=== PATIENT | female | born 1935 | race Caucasian/White ===

== ENCOUNTER 2017-08-31 09:03 | Day surgery (SDC) | payer OTHER, SELFPAY ==
[~2017-08-31] VITALS: Ht 160 cm; Wt 68.0 kg
[~2017-08-31 09:03] MED LIST: ALLO300; BONINE25 MG; CLAR500 PO; Citalopram HBr10 MG; DIAZ5; ESCI10; FENT50TP; GABA100; GEMF600; HYDACE10B; HYDACE5; HYDACE7.5; HYDMOR2 PO; HYDR1TAB94; IBUP800; IRBHYD300; LANS30EC; LEVSOD100; LEVSOD175; LEVSOD75; LISHYD2012; LOSARTAN-HCTZ1 EACH; METCAR500 PO; METPRE4DP PO; Mirapex0.25 MG; PANT40; POTCHL10ER; PRED10 PO; PRED20 PO; QUIN325; RESTASIS MULTI5.5 ML; RESTORIL; SYNTHROID; TRAM50 PO; VOLTAREN
== END 2017-08-31 11:00 | disposition home or self-care (01) ==
LOC: ORSCSDS 09:03
PROVIDERS: Surgery
PROC: 0DBM8ZX Excision of Descending Colon, Via Natural or Artificial Opening Endoscopic, Diagnostic (ICD-10-PCS; principal; 2017-08-31 10:30)
DX: R19.5 Other fecal abnormalities (principal); D12.4 Benign neoplasm of descending colon; K57.30 Diverticulosis of large intestine without perforation or abscess without bleeding; E78.5 Hyperlipidemia, unspecified; R19.4 Change in bowel habit; I48.91 Unspecified atrial fibrillation; R19.7 Diarrhea, unspecified; I10 Essential (primary) hypertension; I25.10 Atherosclerotic heart disease of native coronary artery without angina pectoris; Z79.82 Long term (current) use of aspirin; Z79.899 Other long term (current) drug therapy; E03.9 Hypothyroidism, unspecified
CPT/HCPCS: 88305; J2405; J7120

== ENCOUNTER → 2017-11-11 | Outpatient (CLI) | payer OTHER, SELFPAY | LOC: LAB 14:27 → LAB FUT 11-06 12:45 | DX: R19.7 Diarrhea, unspecified (principal) | CPT/HCPCS: 87015; 87045; 87046; 87177; 87205; 87209; 87493; 87899 ==

== ENCOUNTER → 2018-01-15 | Outpatient (CLI) | payer OTHER, SELFPAY ==
[2018-01-15 09:38] LABS: BASOPHILS PERCENT AUTO 0 % (0-2); EOSINOPHILS PERCENT AUTO 0 % (0-6); Hematocrit 40.8 % (33.0-51.0); Hemoglobin 14.7 g/dL (11.5-16.0); IMMATURE GRAN ABSOLUTE AUTO 0.01 K/mm3 (0.00-0.10); IMMATURE GRAN PERCENT AUTO 0 % (0-1); LYMPHOCYTES ABSOLUTE AUTO 1.22 K/mm3 (0.84-5.20); LYMPHOCYTES PERCENT AUTO 32 % (21-46); MONOCYTES ABSOLUTE AUTO 0.21 K/mm3 (0.16-1.47); MONOCYTES PERCENT AUTO 5 % (4-13); Mean Corpuscular HGB 31.8 pg (26.0-34.0); Mean Corpuscular Volume 88 fL (80-100); Mean Platelet Volume 9.2 fL (9.1-12.4); NEUTROPHILS ABSOLUTE AUTO 2.42 K/mm3 (1.96-9.15); NEUTROPHILS PERCENT AUTO 63 % (41-73); Platelet Count 170 K/mm3 (150-400); RDW Coefficient Variation 11.9 % (11.7-14.2); RDW Standard Deviation 38.2 fL (35.1-46.3); Red Blood Cell Count 4.62 M/mm3 (3.80-5.20); White Blood Cell Count 3.86 K/mm3 (4.00-11.30)
[2018-01-15 09:57] LABS: Alanine Aminotransfer (ALT/SGP 41 U/L (12-78); Albumin, Blood 3.8 g/dL (3.4-5.0); Albumin/Globulin Ratio 1.1 (0.8-1.8); Alk Phos 80 U/L (40-126); Anion Gap 9 mmol/L (6-16); Aspartate Aminotrans (AST/SGOT 27 U/L (12-37); Bilirubin, Total 0.8 mg/dL (0.1-1.0); Blood Urea Nitrogen 18 mg/dL (8-24); Bun/Creatinine Ratio 21.2 (12.0-20.0); CO2, Blood 28 mmol/L (21-32); Calcium, Blood 9.1 mg/dL (8.5-10.1); Chloride, Blood 101 mmol/L (98-108); Creatinine, Blood 0.85 mg/dL (0.40-1.00); Globulin, Blood 3.6 g/dL (2.2-4.0); Glomerular Filtration Rate >60 (60-); Glucose, Blood 102 mg/dL (70-99); Potassium, Blood 4.1 mmol/L (3.5-5.5); Sodium, Blood 138 mmol/L (136-145); Total Protein, Blood 7.4 g/dL (6.4-8.2)
== END | disposition home or self-care (01) ==
LOC: LAB SHORT 09:33 → LAB EV 09:33
PROVIDERS: Physician Assistant
DX: R06.02 Shortness of breath (principal)
CPT/HCPCS: 80053; 85025

== ENCOUNTER 2019-08-16 15:18 | Day surgery (SDC) | payer OTHER ==
[~2019-08-16] VITALS: Ht 160 cm; Wt 70.5 kg
[~2019-08-16 15:18] MED LIST changes: -ALLO300; +ALLO300 PO; -FENT50TP; +FENT50TP TOP; -GABA100; +GABA100 PO; -HYDR1TAB94; +HYDR1TAB94 PO
[2019-08-16] MEDS ORDERED: ATOR80 PO (16:43)
[2019-08-16] MEDS ORDERED: BUPR150ER PO (16:44)
--- NOTE | 2019-08-16 17:04 | NUR ---
08/16/19 1704 Della Russo ([facility] BEDSIDE INJECTION CONDUCTED BY DR. TOPETE 1648: TIME OUT & SITE CHECK CONDUCTED 1649: PROCEDURE START 1654: PROCEDURE END 2MG VERSED IVP GIVEN PER DR ORDERS, DR. TOPETE INJECTED 10ML OF LIDOCAINE 1% WITH EPI 1:100,000. 10MG LIDOCAINE PER ML. PT TOLERATED WELL WITH REMINDERS TO TAKE DEEP BREATHS, PULSE OX ON PATIENT THROUGHOUT PATIENT. NO ISSUES OR COMPLICATIONS.
== END 2019-08-16 17:52 | disposition home or self-care (01) ==
LOC: ORSCSDS 15:18
PROVIDERS: Orthopaedic Surgery
PROC: 01N54ZZ Release Median Nerve, Percutaneous Endoscopic Approach (ICD-10-PCS; principal; 2019-08-16 16:30)
DX: G56.01 Carpal tunnel syndrome, right upper limb (principal); Z79.899 Other long term (current) drug therapy; I10 Essential (primary) hypertension; I25.10 Atherosclerotic heart disease of native coronary artery without angina pectoris
CPT/HCPCS: J0690; J2250; J2704; J3010; J7120

== ENCOUNTER → 2019-09-29 | Outpatient (CLI) | payer OTHER ==
[~2019-09-29] MED LIST changes: +ATOR80 PO; +BUPR150ER PO
== END ==
LOC: LAB SHORT 09:39 → LAB EV 09:39
DX: H00.033 Abscess of eyelid right eye, unspecified eyelid (principal)
CPT/HCPCS: 87070; 87205

== ENCOUNTER → 2020-06-30 | Outpatient (CLI) | payer OTHER | LOC: LAB EV 14:15 → LAB SHORT 14:15 | DX: N39.41 Urge incontinence (principal) | CPT/HCPCS: 87086 ==

== ENCOUNTER 2021-04-14 11:44 | Day surgery (SDC) | payer OTHER ==
[~2021-04-14] VITALS: Ht 157.5 cm; Wt 71.5 kg
[~2021-04-14 11:44] MED LIST changes: +ATOR40TA PO; +Aspir 8181 MG PO; +ESCI10 PO; +FAMO40 PO; +FENTANYL1 EA12 TOP; +LEVOTHYROXINE150 MC3 PO; +LORA10ER PO; +LOSA50 PO; +MAGNESIUM OXID500 MG PO; +MECL25 PO; +MIRAPEX0.25 M2 PO; +MULVITA PO; +Norco 10-325 T1 EACH PO; +OXYB5 PO; +SPIR25 PO; +Selenomax200 MCG PO; +TORSE20 PO; +UNISOM PO; +Vitamin B-Comp1 EACH PO
== END 2021-04-14 13:30 | disposition home or self-care (01) ==
LOC: ORSCSDS 11:44
PROVIDERS: Internal Medicine Gastroenterology
PROC: 0DB68ZX Excision of Stomach, Via Natural or Artificial Opening Endoscopic, Diagnostic (ICD-10-PCS; principal; 2021-04-14 13:15)
PROC: 0DB58ZX Excision of Esophagus, Via Natural or Artificial Opening Endoscopic, Diagnostic (ICD-10-PCS; principal; 2021-04-14 13:15)
PROC: 0D758ZZ Dilation of Esophagus, Via Natural or Artificial Opening Endoscopic (ICD-10-PCS; principal; 2021-04-14 13:15)
DX: R13.10 Dysphagia, unspecified (principal); K44.9 Diaphragmatic hernia without obstruction or gangrene; I25.10 Atherosclerotic heart disease of native coronary artery without angina pectoris; I85.00 Esophageal varices without bleeding; F32.9 Major depressive disorder, single episode, unspecified; I10 Essential (primary) hypertension; Z79.82 Long term (current) use of aspirin; Z79.899 Other long term (current) drug therapy
CPT/HCPCS: 88305; 88342; J2704; J7120

== ENCOUNTER → 2021-05-06 | Outpatient (CLI) | payer OTHER | END | disposition home or self-care (01) | LOC: LAB SHORT 13:50 | DX: R32 Unspecified urinary incontinence (principal) | CPT/HCPCS: 87086 ==

== ENCOUNTER → 2021-11-11 | Outpatient (CLI) | payer OTHER ==
[2021-11-12 09:23] LABS: Candida species (DNA Probe) Negative (NEGATIVE); G. vaginalis (DNA Probe) Negative (NEGATIVE); T. vaginalis (DNA Probe) Negative (NEGATIVE)
== END | disposition home or self-care (01) ==
LOC: LAB 13:53 → LAB SHORT 13:53
PROVIDERS: Family Medicine
DX: Z01.419 Encounter for gynecological examination (general) (routine) without abnormal findings (principal); L29.3 Anogenital pruritus, unspecified
CPT/HCPCS: 87480; 87510; 87660; 88142

== ENCOUNTER 2022-06-21 23:16 | Emergency (ER) | payer OTHER ==
[~2022-06-21] VITALS: Ht 157.5 cm; Wt 68.0 kg
== END 2022-06-22 05:28 | disposition home or self-care (01) ==
LOC: ER 23:16
DX: S12.112A Nondisplaced Type II dens fracture, initial encounter for closed fracture (principal); S01.81XA Laceration without foreign body of other part of head, initial encounter; W01.0XXA Fall on same level from slipping, tripping and stumbling without subsequent striking against object, initial encounter; Z79.899 Other long term (current) drug therapy; Z79.82 Long term (current) use of aspirin; Z88.5 Allergy status to narcotic agent; Z88.8 Allergy status to other drugs, medicaments and biological substances; Z88.6 Allergy status to analgesic agent; Z91.040 Latex allergy status
CPT/HCPCS: 70450; 72125; 73120; 82947

== ENCOUNTER 2023-05-03 09:13 | Emergency (ER) | payer OTHER ==
[~2023-05-03] VITALS: Ht 157.5 cm; Wt 61.2 kg
[2023-05-03 09:41] VITALS: BP 130/69
== END 2023-05-03 11:26 | disposition home or self-care (01) ==
LOC: ER 09:13
DX: R07.81 Pleurodynia (principal); W18.11XA Fall from or off toilet without subsequent striking against object, initial encounter; Z88.8 Allergy status to other drugs, medicaments and biological substances; Z88.6 Allergy status to analgesic agent; Z88.5 Allergy status to narcotic agent; Z91.040 Latex allergy status; Z79.899 Other long term (current) drug therapy; Z79.82 Long term (current) use of aspirin; Z79.891 Long term (current) use of opiate analgesic; K21.9 Gastro-esophageal reflux disease without esophagitis
CPT/HCPCS: 71101; 99283-25; A9270

== ENCOUNTER 2023-06-13 17:25 | Emergency (ER) | payer OTHER ==
[~2023-06-13] VITALS: Ht 157.5 cm; Wt 61.2 kg
[2023-06-13] MEDS ORDERED: HYDMOR2 PO (22:54)
[2023-06-13 23:32] VITALS: BP 137/65
== END 2023-06-13 23:51 | disposition home or self-care (01) ==
LOC: ER 17:25
DX: R13.10 Dysphagia, unspecified (principal)
CPT/HCPCS: 99283

== ENCOUNTER 2023-08-24 15:25 | Emergency (ER) | payer OTHER ==
[~2023-08-24] VITALS: Ht 162.6 cm; Wt 66.7 kg
[2023-08-24] MEDS ORDERED: BACLOFEN5 M1 PO (15:42)
[2023-08-24] MEDS ORDERED: LOPE2C PO (15:43)
[2023-08-24] MEDS ORDERED: HYDROCODONE-AC1 EAC7 PO (15:45)
[2023-08-24] MEDS ORDERED: PANTOPRAZOLE SO40 M2 PO (15:45)
[2023-08-24] MEDS ORDERED: SENNA LAXATIVE8.6 MG PO (15:46)
[2023-08-24 16:03] LABS: BASOPHILS PERCENT AUTO 0 % (0-2); EOSINOPHILS PERCENT AUTO 0 % (0-6); Hematocrit 41.9 % (33.0-51.0); Hemoglobin 14.7 g/dL (11.5-16.0); IMMATURE GRAN ABSOLUTE AUTO 0.01 K/mm3 (0.00-0.10); IMMATURE GRAN PERCENT AUTO 0 % (0-1); LYMPHOCYTES ABSOLUTE AUTO 1.66 K/mm3 (0.84-5.20); LYMPHOCYTES PERCENT AUTO 32 % (21-46); MONOCYTES ABSOLUTE AUTO 0.29 K/mm3 (0.16-1.47); MONOCYTES PERCENT AUTO 6 % (4-13); Mean Corpuscular HGB Conc 35.1 g/dL (31.5-36.5); Mean Corpuscular Volume 94 fL (80-100); Mean Platelet Volume 9.5 fL (9.1-12.4); NEUTROPHILS ABSOLUTE AUTO 3.28 K/mm3 (1.96-9.15); NEUTROPHILS PERCENT AUTO 63 % (41-73); Platelet Count 151 K/mm3 (150-400); RDW Coefficient Variation 11.9 % (11.7-14.2); RDW Standard Deviation 41.1 fL (35.1-46.3); Red Blood Cell Count 4.45 M/mm3 (3.80-5.20); White Blood Cell Count 5.24 K/mm3 (4.00-11.30)
[2023-08-24 16:10] LABS: Albumin, Blood 3.9 g/dL (3.4-5.0); Albumin/Globulin Ratio 1.1 (0.8-1.8); Bilirubin, Total 0.5 mg/dL (0.1-1.0); Bun/Creatinine Ratio 25.9 (12.0-20.0); Calcium, Blood 9.3 mg/dL (8.5-10.1); Creatinine, Blood 0.77 mg/dL (0.40-1.00); Globulin, Blood 3.5 g/dL (2.2-4.0); Potassium, Blood 3.8 mmol/L (3.5-5.5); Total Protein, Blood 7.4 g/dL (6.4-8.2)
[2023-08-24 18:00] VITALS: BP 164/76
== END 2023-08-24 18:18 | disposition home or self-care (01) ==
LOC: ER 15:25
PROVIDERS: Emergency Medicine
DX: S16.1XXA Strain of muscle, fascia and tendon at neck level, initial encounter (principal); S00.03XA Contusion of scalp, initial encounter; S00.31XA Abrasion of nose, initial encounter; S00.81XA Abrasion of other part of head, initial encounter; S12.110D Anterior displaced Type II dens fracture, subsequent encounter for fracture with routine healing; W01.10XA Fall on same level from slipping, tripping and stumbling with subsequent striking against unspecified object, initial encounter; Z88.8 Allergy status to other drugs, medicaments and biological substances; Z88.6 Allergy status to analgesic agent; Z88.5 Allergy status to narcotic agent; Z91.040 Latex allergy status; Z79.899 Other long term (current) drug therapy; Z79.82 Long term (current) use of aspirin; K21.9 Gastro-esophageal reflux disease without esophagitis
CPT/HCPCS: 70450; 72125; 80053; 85025; 93005; 93010; 96374; 99284-25; J1170

== ENCOUNTER 2024-04-13 16:33 | Emergency (ER) | payer OTHER ==
[~2024-04-13] VITALS: Ht 157.5 cm; Wt 65.3 kg
[~2024-04-13 16:33] MED LIST changes: +BACLOFEN5 M1 PO; +HYDROCODONE-AC1 EAC7 PO; +LOPE2C PO; +PANTOPRAZOLE SO40 M2 PO; +SENNA LAXATIVE8.6 MG PO
[2024-04-13 16:55] LABS: BASOPHILS ABSOLUTE AUTO 0.01 K/mm3 (0.00-0.23); BASOPHILS PERCENT AUTO 0 % (0-2); EOSINOPHILS PERCENT AUTO 0 % (0-6); Hemoglobin 15.1 g/dL (11.5-16.0); IMMATURE GRAN PERCENT AUTO 0 % (0-1); LYMPHOCYTES ABSOLUTE AUTO 0.96 K/mm3 (0.84-5.20); LYMPHOCYTES PERCENT AUTO 24 % (21-46); MONOCYTES ABSOLUTE AUTO 0.56 K/mm3 (0.16-1.47); MONOCYTES PERCENT AUTO 14 % (4-13); Mean Corpuscular HGB Conc 35.1 g/dL (31.5-36.5); Mean Corpuscular Volume 91 fL (80-100); Mean Platelet Volume 9.6 fL (9.1-12.4); NEUTROPHILS ABSOLUTE AUTO 2.45 K/mm3 (1.96-9.15); NEUTROPHILS PERCENT AUTO 62 % (41-73); Platelet Count 112 K/mm3 (150-400); RDW Coefficient Variation 11.9 % (11.7-14.2); RDW Standard Deviation 39.8 fL (35.1-46.3); Red Blood Cell Count 4.72 M/mm3 (3.80-5.20); White Blood Cell Count 3.98 K/mm3 (4.00-11.30)
[2024-04-13 17:34] LABS: Influenza A, PCR NEGATIVE (NEGATIVE); Influenza B, PCR NEGATIVE (NEGATIVE); Resp Syncytial Virus, PCR NEGATIVE (NEGATIVE)
[2024-04-13 17:46] LABS: Albumin, Blood 3.8 g/dL (3.4-5.0); Albumin/Globulin Ratio 1.1 (0.8-1.8); Bilirubin, Total 0.6 mg/dL (0.1-1.0); Bun/Creatinine Ratio 24.2 (12.0-20.0); Calcium, Blood 8.8 mg/dL (8.5-10.1); Creatinine, Blood 0.74 mg/dL (0.40-1.00); Globulin, Blood 3.5 g/dL (2.2-4.0); Potassium, Blood 3.9 mmol/L (3.5-5.5); Total Protein, Blood 7.3 g/dL (6.4-8.2)
[2024-04-13 18:30] VITALS: BP 148/112
[2024-04-13 20:01] LABS: SARS-Cov-2 (COVID-19) PCR, MMC POSITIVE (NEGATIVE)
[2024-04-13] MEDS ORDERED: PAXLOVID 300-11 EAC1 PO (21:06)
== END 2024-04-13 21:30 ==
LOC: ER 16:33
PROVIDERS: Emergency Medicine
DX: U07.1 COVID-19 (principal); K21.9 Gastro-esophageal reflux disease without esophagitis; Z88.6 Allergy status to analgesic agent; Z88.5 Allergy status to narcotic agent; Z91.040 Latex allergy status; Z88.8 Allergy status to other drugs, medicaments and biological substances; Z79.82 Long term (current) use of aspirin; Z79.890 Hormone replacement therapy; Z79.899 Other long term (current) drug therapy
CPT/HCPCS: 0241U; 71046; 80053; 85025; 93005; 93010; 99285-25

== ENCOUNTER 2024-04-15 14:47 | Emergency (ER) | payer OTHER ==
[~2024-04-15] VITALS: Ht 157.5 cm; Wt 65.3 kg
[~2024-04-15 14:47] MED LIST changes: +PAXLOVID 300-11 EAC1 PO
[2024-04-15] MEDS ORDERED: EUTHYROX137 MC1 PO (18:25)
[2024-04-15] MEDS ORDERED: SPIRONOLACTONE25 MG PO (18:27)
[2024-04-15] MEDS ORDERED: PRAMIPEXOLE D0.25 M1 PO (18:28)
[2024-04-15] MEDS ORDERED: ESCITALOPRAM OXA5 MG PO (18:28)
[2024-04-15] MEDS ORDERED: METOPROLOL SUCC25 MG PO (18:30)
[2024-04-15] MEDS ORDERED: GuaiFENesin 600 MG TabCR PO ONE (18:40)
[2024-04-15] MEDS ORDERED: Albuterol 2.5 MG/3 ML VIAL INH ONE (18:40)
[2024-04-15 19:06] LABS: BASOPHILS ABSOLUTE AUTO 0.01 K/mm3 (0.00-0.23); BASOPHILS PERCENT AUTO 0 % (0-2); EOSINOPHILS PERCENT AUTO 0 % (0-6); Hematocrit 43.1 % (33.0-51.0); Hemoglobin 15.3 g/dL (11.5-16.0); IMMATURE GRAN PERCENT AUTO 0 % (0-1); LYMPHOCYTES ABSOLUTE AUTO 0.97 K/mm3 (0.84-5.20); LYMPHOCYTES PERCENT AUTO 33 % (21-46); MONOCYTES ABSOLUTE AUTO 0.29 K/mm3 (0.16-1.47); MONOCYTES PERCENT AUTO 10 % (4-13); Mean Corpuscular HGB 32.3 pg (26.0-34.0); Mean Corpuscular HGB Conc 35.5 g/dL (31.5-36.5); Mean Corpuscular Volume 91 fL (80-100); Mean Platelet Volume 9.6 fL (9.1-12.4); NEUTROPHILS ABSOLUTE AUTO 1.67 K/mm3 (1.96-9.15); NEUTROPHILS PERCENT AUTO 57 % (41-73); Platelet Count 127 K/mm3 (150-400); RDW Coefficient Variation 11.7 % (11.7-14.2); RDW Standard Deviation 39.1 fL (35.1-46.3); Red Blood Cell Count 4.73 M/mm3 (3.80-5.20); White Blood Cell Count 2.94 K/mm3 (4.00-11.30)
[2024-04-15 19:29] LABS: Albumin, Blood 3.8 g/dL (3.4-5.0); Albumin/Globulin Ratio 1.1 (0.8-1.8); Bilirubin, Total 0.6 mg/dL (0.1-1.0); Bun/Creatinine Ratio 18.8 (12.0-20.0); Calcium, Blood 8.7 mg/dL (8.5-10.1); Creatinine, Blood 0.64 mg/dL (0.40-1.00); Globulin, Blood 3.4 g/dL (2.2-4.0); Total Protein, Blood 7.2 g/dL (6.4-8.2)
[2024-04-15] MEDS ORDERED: RX Prepack Albuterol 1 PREPACK/6.7 GM INH UD ONE (20:25)
[2024-04-15] MEDS ORDERED: Benzonatate 100 MG Cap PO ONE (20:25)
[2024-04-15] MEDS ORDERED: ALBU90OI INH (20:29)
[2024-04-15] MEDS ORDERED: GUAI600T33 PO (20:29)
[2024-04-15] MEDS ORDERED: BENZ100A PO (20:29)
[2024-04-15 20:58] VITALS: BP 147/72
== END 2024-04-15 21:09 | disposition home or self-care (01) ==
LOC: ER 14:47
PROVIDERS: Student in an Organized Health Care Education/Training Program
DX: U07.1 COVID-19 (principal); K21.9 Gastro-esophageal reflux disease without esophagitis; I25.10 Atherosclerotic heart disease of native coronary artery without angina pectoris; Z95.5 Presence of coronary angioplasty implant and graft; Z88.8 Allergy status to other drugs, medicaments and biological substances; Z88.5 Allergy status to narcotic agent; Z91.040 Latex allergy status; Z79.82 Long term (current) use of aspirin; Z79.899 Other long term (current) drug therapy; Z79.890 Hormone replacement therapy
CPT/HCPCS: 71046; 80053; 85025; 93005; 93010; 94640; 94664; 99284-25; A9270

== ENCOUNTER 2024-05-26 18:05 | Emergency (ER) | payer OTHER ==
[~2024-05-26] VITALS: Ht 157.5 cm; Wt 65.3 kg
[~2024-05-26 18:05] MED LIST changes: +ALBU90OI INH; +BENZ100A PO; +ESCITALOPRAM OXA5 MG PO; +EUTHYROX137 MC1 PO; +GUAI600T33 PO; +METOPROLOL SUCC25 MG PO; +PRAMIPEXOLE D0.25 M1 PO; +SPIRONOLACTONE25 MG PO
[2024-05-26] MEDS ORDERED: ACET325 PO (18:17)
[2024-05-26] MEDS ORDERED: Acetaminophen 325 MG TABLET PO ONE (18:50)
[2024-05-26 19:45] VITALS: BP 107/68
== END 2024-05-26 19:48 | disposition home or self-care (01) ==
LOC: ER 18:05
DX: S00.03XA Contusion of scalp, initial encounter (principal); K21.9 Gastro-esophageal reflux disease without esophagitis; W01.0XXA Fall on same level from slipping, tripping and stumbling without subsequent striking against object, initial encounter; Z79.899 Other long term (current) drug therapy; Z88.6 Allergy status to analgesic agent; Z88.5 Allergy status to narcotic agent; Z91.040 Latex allergy status; Z88.8 Allergy status to other drugs, medicaments and biological substances
CPT/HCPCS: 70450; 72125; 99284-25; A9270

== ENCOUNTER 2024-05-28 10:48 | Emergency (ER) | payer OTHER ==
[~2024-05-28] VITALS: Ht 162.6 cm; Wt 74.8 kg
[~2024-05-28 10:48] MED LIST changes: +ACET325 PO
[2024-05-28 11:05] VITALS: BP 154/62
[2024-05-28] MEDS ORDERED: OxyCODONE 5 mg/Acetamin 325 mg TABLET PO ONE (11:10)
== END 2024-05-28 12:21 | disposition home or self-care (01) ==
LOC: ER 10:48
DX: S16.1XXA Strain of muscle, fascia and tendon at neck level, initial encounter (principal); K21.9 Gastro-esophageal reflux disease without esophagitis; W01.0XXA Fall on same level from slipping, tripping and stumbling without subsequent striking against object, initial encounter; Z79.899 Other long term (current) drug therapy; Z88.6 Allergy status to analgesic agent; Z88.8 Allergy status to other drugs, medicaments and biological substances; Z88.5 Allergy status to narcotic agent; Z91.040 Latex allergy status
CPT/HCPCS: 99282; A9270

== ENCOUNTER 2024-09-13 11:40 | Inpatient (IN) | payer OTHER ==
[~2024-09-13] VITALS: Ht 160 cm; Wt 67.3 kg
[~2024-09-13 11:40] MED LIST changes: -OXYB5 PO; +Oxybutynin Chlo10 MG PO
[2024-09-13] MEDS ORDERED: SPIR25 PO (12:59)
[2024-09-13] MEDS ORDERED: FentaNYL Citrate 50 MCG/ML 2 ML Injection IV ONE (13:00)
[2024-09-13] MEDS ORDERED: Ketorolac Tromethamine 30mg Vial IV ONE (14:20)
[2024-09-13] MEDS ORDERED: HYDROmorphone HCl/Pf 1MG SYR IV ONE (14:20)
[2024-09-13] MEDS ORDERED: Cyclobenzaprine HCl 10 MG Tab PO ONE (14:20)
[2024-09-13] MEDS ORDERED: FLU VACC TS2024-25(6MOS UP)/PF 45 MCG/0.5 ML SYRINGE IM SCH (15:35)
[2024-09-13] MEDS ORDERED: FentaNYL Citrate 50 MCG/ML 2 ML Injection IV PRN (15:35)
[2024-09-13] MEDS ORDERED: TraMADol HCl 50 MG Tab PO PRN (18:15)
[2024-09-13] MEDS ORDERED: Acetaminophen 325 MG TABLET PO PRN (18:15)
[2024-09-13] MEDS ORDERED: Baclofen 10 MG Tab PO PRN (18:20)
[2024-09-13 19:21] LABS: Hematocrit 39.4 % (33.0-51.0); Hemoglobin 13.7 g/dL (11.5-16.0); Mean Corpuscular HGB 32.6 pg (26.0-34.0); Mean Corpuscular HGB Conc 34.8 g/dL (31.5-36.5); Mean Corpuscular Volume 94 fL (80-100); Mean Platelet Volume 9.7 fL (9.1-12.4); Platelet Count 143 K/mm3 (150-400); RDW Coefficient Variation 11.6 % (11.7-14.2); RDW Standard Deviation 39.6 fL (35.1-46.3); White Blood Cell Count 9.46 K/mm3 (4.00-11.30)
[2024-09-13 19:31] LABS: Bun/Creatinine Ratio 31.8 (12.0-20.0); Calcium, Blood 9.4 mg/dL (8.5-10.1); Creatinine, Blood 0.69 mg/dL (0.40-1.00); Potassium, Blood 4.4 mmol/L (3.5-5.5)
[2024-09-13] MEDS ORDERED: Atorvastatin 40 MG Tab PO SCH (21:00)
[2024-09-13] MEDS ORDERED: Pramipexole DI-HCL 0.25 MG Tab PO SCH (21:00)
[2024-09-13] MEDS ORDERED: oxyBUTYnin chloride 5 MG TAB PO SCH (21:00)
[2024-09-13] MEDS ORDERED: Sennosides 8.6 MG Tab PO SCH (21:00)
--- NOTE | 2024-09-13 21:35 | NUR ---
PT HERE VIA [facility] FROM ER. PT TRANSFERRED TO MEDICAL FLOOR BED. PT'S FIRST REQUEST IS PAIN MEDICATION - DIDN'T REMOVED LINENS AT THIS TIME - WILL AWAIT PAIN CONTROL RELIEF BEFORE REMOVING LINENS AND PLACING PT IN A GOWN. FAMILY FRIEND PRESENT. TOWEL PLACED BETWEEN LEGS FOR PT COMFORT. IV FLUSHED WITHOUT DIFFICULTY. CALL LIGHT REVIEWED. BED IN LOW POSITION. BED ALARM ON FOR PT SAFETY. PT IS NPO. FAMILY/PT REPORT KHOAVIC TOPETE SAW PT DOWN IN ER - AND SHE IS SCHEDULED FOR SURGERY TOMORROW AT 11 AM. HECTOR INITIALS ON PT'S LEFT LEG.
[2024-09-13 21:43] VITALS: BP 144/46
--- NOTE | 2024-09-13 21:45 | NUR ---
PT HAS A BUMP ON THE LEFT SIDE OF HER HEAD FROM HER FALL AT THE FACILTY - SIZE IS APPX 2.5 INCH X 2.5 INCH - NO REDNESS VISUALIZED. SKIN IS INTACT.
[2024-09-13] MEDS ORDERED: Tessalon200 MG PO (22:12)
[2024-09-13] MEDS ORDERED: IBUP200 PO (22:13)
[2024-09-13] MEDS ORDERED: HYDROmorphone HCl/Pf 1MG SYR IV PRN (22:50)
[2024-09-14] VITALS (27 sets, daily range): BP systolic 10–155; BP diastolic 33–93
--- NOTE | 2024-09-14 03:56 | NUR ---
I SPOKE TO DR. MICHAUD - UPDATED ON NO OUTPUT SINCE ARRIVAL TONIGHT, NO IV FLUIDS ORDERED, AND NO PAS VS LOVENOX - HOWEVER PT IS SCHEDULED FOR SURGERY TOMORROW. DR. MICHAUD REPORTED HE WOULD PLACE ORDERS FOR IV FLUIDS AND R SIDED SCD. PT HAS A PUREWICK IN PLACE. CALL LIGHT WITHIN REACH. BED IN LOW POSITION.
[2024-09-14] MEDS ORDERED: Lactated Ringer's 1,000 ML IV SCH (04:00)
--- NOTE | 2024-09-14 05:50 | NUR ---
SHIFT SUMMARY - NO ACUTE CHANGES SINCE ADMIT LAST NOC. PT DID HAVE GOOD RELIEF OF PAIN - SEE EMAR. PT HAS BEEN SLEEPING FOR SEVERAL HOURS. PT REMINDED ABOUT NOT MOVING HER LEFT LEG - TOWEL SPACER BETWEEN PT'S LEGS. PT HASN'T URINATED TONIGHT - HOWEVER SHE ONLY HAD 12 CC URINE IN HER BLADDER WITH A BLADDER SCAN. IV FLUIDS ARE NOW INFUSING. PT HAS BEEN NPO TONIGHT, EXCEPT FOR SMALL SIPS OF WATER WITH MEDICATIONS. PT REPORTS SHE DIDN'T EAT/DRINK MUCH YESTERDAY EITHER. SURGERY PACKET IN FRONT OF THE CHART. PUREWICK IN PLACE. BED IN LOW POSITION. BED ALARM ON FOR PT SAFETY. CALL LIGHT WITHIN REACH.
[2024-09-14] MEDS ORDERED: Levothyroxine Sodium 0.15 MG Tab PO SCH (06:00)
[2024-09-14 06:07] LABS: Hematocrit 36.8 % (33.0-51.0); Mean Corpuscular HGB 33.2 pg (26.0-34.0); Mean Corpuscular HGB Conc 35.3 g/dL (31.5-36.5); Mean Corpuscular Volume 94 fL (80-100); Mean Platelet Volume 10.1 fL (9.1-12.4); Platelet Count 131 K/mm3 (150-400); RDW Coefficient Variation 11.8 % (11.7-14.2); RDW Standard Deviation 40.7 fL (35.1-46.3); Red Blood Cell Count 3.92 M/mm3 (3.80-5.20); White Blood Cell Count 6.48 K/mm3 (4.00-11.30)
[2024-09-14 06:39] LABS: Bun/Creatinine Ratio 39.8 (12.0-20.0); Calcium, Blood 9.2 mg/dL (8.5-10.1); Creatinine, Blood 0.68 mg/dL (0.40-1.00); Potassium, Blood 4.1 mmol/L (3.5-5.5)
[2024-09-14] MEDS ORDERED: TraMADol HCl 50 MG Tab PO PRN (07:25)
[2024-09-14] MEDS ORDERED: Tranexamic Acid 1,000 MG in NS 100 ML IV SCH (07:40)
[2024-09-14] MEDS ORDERED: CeFAZolin Sodium 2,000 MG in NS 100 ML IV SCH (07:40)
[2024-09-14] MEDS ORDERED: Losartan Potassium 50 MG Tab PO SCH (09:00)
[2024-09-14] MEDS ORDERED: Magnesium Oxide 400 MG Tab PO SCH (09:00)
[2024-09-14] MEDS ORDERED: Polyethylene Glycol 3350 17 gm PO SCH (09:00)
[2024-09-14] MEDS ORDERED: Spironolactone 25 MG Tab PO SCH (09:00)
[2024-09-14] MEDS ORDERED: Allopurinol 100 MG Tab PO SCH (09:00)
[2024-09-14] MEDS ORDERED: Metoprolol Succinate 25 MG TABCR PO SCH (09:00)
[2024-09-14] MEDS ORDERED: Pantoprazole Sodium 40 MG Tab PO SCH (09:00)
[2024-09-14] MEDS ORDERED: EpiNEPhrine 1 MG/1 ML 1ML Vial ONE (13:23)
[2024-09-14] MEDS ORDERED: Bupivacaine 0.5% HCl 5 MG/ML 30MLVIAL ONE (13:23)
--- NOTE | 2024-09-14 13:40 | NUR ---
PT LEFT FOR SURGERY APPROXIMATELY 1330 AFTER BEING REPOSITIONED AND BLADDER SCANNED. THIS RN INFORMED PT SHOUDL RETURN TO THIS ROOM BUT WILL BE INFORMED OTHERWISE.
[2024-09-14] MEDS ORDERED: propofoL 20 ML IV ONE (13:59)
[2024-09-14] MEDS ORDERED: Rocuronium Bromide 10 MG/ML 5ML Injection IV ONE (13:59)
[2024-09-14] MEDS ORDERED: Phenylephrine HCl 100 MCG/ML-NS 10MLSYR (1MG/10ML) ONE ×2 (14:24→15:00)
[2024-09-14] MEDS ORDERED: Ondansetron HCl 2 MG / ML 2ML Vial IV PRN (15:10)
[2024-09-14] MEDS ORDERED: Ondansetron HCl 2 MG / ML 2ML Vial ONE (15:14)
[2024-09-14] MEDS ORDERED: Dexamethasone Sod Phos 10 MG/ML 1ML VIAL ONE (15:14)
[2024-09-14] MEDS ORDERED: FentaNYL Citrate 50 MCG/ML 2 ML Injection IV PRN ×2 (15:15)
[2024-09-14] MEDS ORDERED: Labetalol HCL 5 MG/ML 4ML Injection (Single Dose) IV PRN (15:15)
[2024-09-14] MEDS ORDERED: FentaNYL Citrate 50 MCG/ML 2 ML Injection ONE ×3 (15:27→16:24)
[2024-09-14] MEDS ORDERED: Sugammadex Sodium 200 MG/2ML SDV (100 MG/ML) ONE (15:50)
--- NOTE | 2024-09-14 16:22 | NUR ---
SHIFT SUMMARY PT AO3/4, COOPERATIVE, ABLE TO MAKE NEEDS KNOWN. HAS BEEN NPO SINCE YESTERDAY FOR SURGERY TODAY AT 1100. DID NOT GO TO SURGERY UNTIL 1330. ENDORSES PAIN OF LEFT LEG/HIP, MEDICATED PER EMAR. PURE WICK ACTIVE, HAS NOT VOIDED ALL NIGHT AND DAY. BLADDER SCAN COMPLETED. PAIN REPORTS WHEN SHE "PUSHES TO URINATE" IT HURTS HER LEFT LEG. PT HAS NOT BEEN OUT OF BED ALL SHIFT. HAS NOT ARRIVED FROM SURGERY YET.
[2024-09-14] MEDS ORDERED: Ketorolac Tromethamine 30mg Vial ONE (16:34)
[2024-09-14] MEDS ORDERED: Ketorolac Tromethamine 30mg Vial IV ONE (16:40)
[2024-09-14] MEDS ORDERED: HYDROmorphone HCl/Pf 1MG SYR ONE (17:00)
[2024-09-14] MEDS ORDERED: HYDROmorphone HCl/Pf 1MG SYR IV ONE (17:20)
[2024-09-15 01:33] VITALS: BP 147/80
[2024-09-15 03:09] VITALS: BP 150/53
--- NOTE | 2024-09-15 03:11 | NUR ---
PT CALLING OUT. PT KICKING LEGS. PT READJUSTED IN BED, SCD'S THAT WERE AT BEDSIDE PLACED ON PT LEGS AND STARTED. PILLOW PLACED UNDER PT HIP WITH SOME RELIEF. WILL GIVE REPORT TO PRIMARY RN UPON HER RETURN.
[2024-09-15 04:14] VITALS: BP 133/56
--- NOTE | 2024-09-15 05:02 | NUR ---
LETHARGIC WITH SOFT BPs (MAP ADEQUATE) EARLY PART OF SHIFT & WAS AROUSABLE ONLY WITH LOUD NOISE AND SHAKING, WAS ORIENTED TO SELF & "[place]" ONLY & DID NOT KNOW WAS IN HOSPITAL OR WHY. LATER IN SHIFT MORE ALERT & ABLE TO STATE MONTH,YEAR & THAT [place]. BPS WERE BACK UP T0 NORMAL BY 0100 MIRAPEX WAS GIVEN SEVERAL HRS LATE TO TO LETHARGY. ALTHOUGH VOIDED LG AMT IN PACU PER REPORT WAS VOIDING INADEQUATE AMTS HERE AND HAVING URINARY RETENTION CATH-ISC ORDER OBTAINED AFTER BLADDER SCAN OVER 500 (PRIOR SCAN 306 EARLIER IN SHIFT) ORDER OBTAINED AFTER SCAN OVER 500, ISC YIELDED 475 ML ORNG/AMB CL URINE AT 0459 -TOLERATED WELL. RESTLESS OVERNIGHT WITH SOME LT HIP PAIN & RESTLESS LEGS. MEDICATED WITH PO & IV PRN PAIM MEDS AVAILABLR PER OCT & EFFECTIVE-FACE SCALE USED. MIRAPEX WAS SEVERAL HRS LATE D/T LETHARGY. SKIN REMAINS WARM,DRY & PALE, LT HIP DSG CDI. SCATTERED PURPLISH BRUISING TO INNER LEFT THIGH. PEDAL PULSES GOOD BILAT. HAS BEEN NPO EXCEPT SIPS WITH MEDS NS INFUSING AT 75 ML/HR SATS IN LOW TO UPPER 90s ON 3L/M NC W/ DROPS TO UPPER 80S TIMES PT REMOVED HER 02. SCDs ON.
[2024-09-15 05:59] LABS: Hematocrit 27.8 % (33.0-51.0); Hemoglobin 9.5 g/dL (11.5-16.0); Mean Corpuscular HGB 32.4 pg (26.0-34.0); Mean Corpuscular HGB Conc 34.2 g/dL (31.5-36.5); Mean Corpuscular Volume 95 fL (80-100); Mean Platelet Volume 10.6 fL (9.1-12.4); Platelet Count 117 K/mm3 (150-400); RDW Coefficient Variation 11.7 % (11.7-14.2); RDW Standard Deviation 40.5 fL (35.1-46.3); Red Blood Cell Count 2.93 M/mm3 (3.80-5.20); White Blood Cell Count 9.59 K/mm3 (4.00-11.30)
[2024-09-15 06:25] LABS: Bun/Creatinine Ratio 37.8 (12.0-20.0); Calcium, Blood 8.4 mg/dL (8.5-10.1); Creatinine, Blood 0.79 mg/dL (0.40-1.00); Potassium, Blood 4.7 mmol/L (3.5-5.5)
[2024-09-15 07:10] VITALS: BP 102/60
[2024-09-15] MEDS ORDERED: TraMADol HCl 50 MG Tab PO PRN (11:30)
[2024-09-15] MEDS ORDERED: NS 1,000 ML IV SCH (11:40)
[2024-09-15] MEDS ORDERED: Acetaminophen 500 MG Tab PO SCH (14:00)
[2024-09-15] MEDS ORDERED: Ondansetron HCl 2 MG / ML 2ML Vial IV PRN (14:05)
[2024-09-15 15:49] VITALS: BP 118/50
--- NOTE | 2024-09-15 17:11 | NUR ---
SHIFT SUMMARY PT AOX2/3, COOPERATIVE, NOT ABLE TO MAKE NEEDS KNOWN VERY WELL. GOES IN AND OUT OF COHERENCY WITH LEVELS OF FATIGUE. HAS BEEN IN BED ALL SHIFT, EATEN VERY LITTLE, BITES OF APPLESAUSE. NEEDS VERBAL CUES TO DRINK WATER THIS RN OFFERS. NS AT 75/HR. NO PURE WICK, PT HAS NOT VOIDED VERY MUCH TODAY. NO BM. FAMILY HAS BEEN BEDSIDE FOR HALF THE DAY. 2.5L O2 CURRENTLY, WEANING FROM 3L O2. BED IN LOWEST POSITION, CALL LIGHT WITHIN REACH.
[2024-09-15 20:42] VITALS: BP 109/59
[2024-09-15] MEDS ORDERED: HYDROmorphone HCl/Pf 1MG SYR IV ONE (23:10)
[2024-09-15] MEDS ORDERED: OLANZapine 10 MG Vial IM ONE (23:15)
[2024-09-15] MEDS ORDERED: HYDROmorphone HCl/Pf 1MG SYR IV PRN (23:40)
[2024-09-16] MEDS ORDERED: HYDROmorphone HCl/Pf 1MG SYR IV SCH
--- NOTE | 2024-09-16 01:35 | NUR ---
ASSUMED CARE AND COMFORT OF THIS PATIENT FOR PRIMARY RN LUNCH BREAK. PATIENT YELLING OUT. "OUGH OUGH OUGH" THRASHING IN BED. THIS RN ASKS PATIENT WHERE HER PAIN IS. PATIENT SAYS MY HIP MY HIP. SHE IS TEARFUL AND UNABLE TO HOLD STILL. DECISION TO GIVE PATIENT 1MG IVP OF DILAUDID FOR SEVERE PAIN. WILL CONTINUE TO CLOSELY MONITOR THIS PATIENT FOR ANY WANTS OR NEEDS UNTIL PRIMARY RN RETURNS.
[2024-09-16 02:26] VITALS: BP 115/47
--- NOTE | 2024-09-16 06:09 | NUR ---
SHIFT SUMMARY PATIENT HAS NOT BEEN ALERT AND ORIENTED THIS SHIFT. PATIENT HAS HAD NO ACUTE EVENTS THIS SHIFT. PATIENT HAS HAD BEEN MEDICATED FOR PAIN THIS SHIFT. PATIENT HAS HAD NO COMPLAINTS OF SOB, NAUSEA OR VOMITTING. PATIENT HAS BEEN ON 3L NC ALL SHIFT. IV FLUIDS INFUSED ORDERED. BED IN LOCKED AND LOWEST POSITION. CALL LIGHT IN PLACE. WILL MONITOR UNTIL SHIFT CHANGE.
[2024-09-16 06:47] LABS: Hematocrit 24.6 % (33.0-51.0); Hemoglobin 8.3 g/dL (11.5-16.0); Mean Corpuscular HGB 32.5 pg (26.0-34.0); Mean Corpuscular HGB Conc 33.7 g/dL (31.5-36.5); Mean Corpuscular Volume 97 fL (80-100); Platelet Count 104 K/mm3 (150-400); RDW Coefficient Variation 11.8 % (11.7-14.2); RDW Standard Deviation 41.4 fL (35.1-46.3); Red Blood Cell Count 2.55 M/mm3 (3.80-5.20); White Blood Cell Count 6.15 K/mm3 (4.00-11.30)
[2024-09-16 07:11] LABS: Bun/Creatinine Ratio 35.8 (12.0-20.0); Calcium, Blood 8.2 mg/dL (8.5-10.1); Creatinine, Blood 0.73 mg/dL (0.40-1.00); Potassium, Blood 4.4 mmol/L (3.5-5.5)
[2024-09-16 07:51] VITALS: BP 144/54
[2024-09-16] MEDS ORDERED: Enoxaparin 40 MG/0.4 ML SYR SC SCH (08:00)
--- NOTE | 2024-09-16 11:42 | NUR ---
Upon receiving a spiritual care referral, I visited the pt. The pt was awake and alert and displayed minor difficulty speaking but was receptive to conversation. Pt had a tendency of trailing off verbally. Conducted brief spiritual assessment. Pt was not interested in recieving prayer as they had "already been given a blessing" from their jennifer group. Pt expressed gratitude for compassionate listening and seemed more peaceful upon concluding the visit. (This note is written by Vitor Walters and approved by Marko Fregoso)
[2024-09-16] MEDS ORDERED: HYDROcodone 5-APAP 325 TAB PO PRN (14:45)
[2024-09-16] MEDS ORDERED: HYDROcodone 5-APAP 325 TAB PO ONE (14:45)
[2024-09-16] MEDS ORDERED: Benzonatate 100 MG Cap PO PRN (15:20)
[2024-09-16 15:47] VITALS: BP 120/57
[2024-09-16] MEDS ORDERED: Ibuprofen 100 MG/5 ML 5ML UDC PO PRN (16:20)
--- NOTE | 2024-09-16 17:40 | NUR ---
SHIFT SUMMARY PT LESS CONFUSED THIS EVENING. PT NOW KNOWS THAT SHE IS IN THE HOSPITAL AND REASON FOR BEING HERE. PT LESS ANXIOUS THAN THIS AM ALSO. ARAYA PLACED THIS AFTERNOON AFTER PT HAD OVER 500 ML IN BLADDER WITH CONTINUOSLY LEAKING URINE. AFTER MULTIPLE ATTEMPTS OF TRYING TO STRAIGHT CATH, INDWELLING WAS PLACED DUE TO DIFFICULTY OF PLACING AND COMFORT OF PATIENT. PT UP TO SIDE OF BED WITH PT/OT THIS AFTERNOON. MEDICATED FOR LEFT HIP PAIN SEVERAL TIMES THIS SHIFT PER EMAR. NO ACUTE CHANGES AT THIS TIME. CALL LIGHT IN REACH.
[2024-09-16 21:38] VITALS: BP 145/65
[2024-09-17 02:47] VITALS: BP 137/88
--- NOTE | 2024-09-17 04:27 | NUR ---
SEWING INSPECTOR SUMMARY PT CONTINUES TO BE VERY CONFUSED DURING THE NIGHT. WHEN HER PAIN MEDICINE WEARS OFF, SHE STARTS YELLING INTO THE HALLWAY, SAYING THINGS LIKE: "THEY ARE TRYING TO KILL ME". SHE NEEDS FREQUENT REDIRECTION AND RE-ORIENTATION. NORCO EFFECTIVE FOR PAIN. PT DID NOT REQUIRE ANY IV FENTANYL THIS SHIFT. SHE ENDED UP PULLING OUT HER IV AT ABOUT 0300 AND REFUSED TO HAVE ANOTHER ONE PLACE. WE ARE NOT USING IT FOR ANY MEDICATIONS OTHER THAN IF SHE NEEDED IV FENTANYL. I EXPLAINED TO HER THAT SHE SHOULD GET ANOTHER IV IN CASE SHE NEEDS IV PAIN MANAGEMENT AND SHE STILL REFUSED A NEW IV. CALLED DR MICHAUD AND EXPLAINED THE SITUATION AND HE SAYS IT IS OK TO LEAVE IV OUT. ORDER PLACED. PT HAD A BOWEL MOVEMENT AND SAYS HER ABDOMEN FEELS BETTER. ATTEMPTED TO WEAN O2. PT IS STILL REQUIRING 1-2L TO MAINTAIN SATS. SHE DROPS TO 89% WHEN ON ROOM AIR.
[2024-09-17 06:41] LABS: Bun/Creatinine Ratio 29.8 (12.0-20.0); Calcium, Blood 8.4 mg/dL (8.5-10.1); Creatinine, Blood 0.57 mg/dL (0.40-1.00)
[2024-09-17 07:37] VITALS: BP 101/50
[2024-09-17 09:18] LABS: BASOPHILS PERCENT AUTO 0 % (0-2); EOSINOPHILS PERCENT AUTO 0 % (0-6); Hematocrit 24.5 % (33.0-51.0); Hemoglobin 8.5 g/dL (11.5-16.0); IMMATURE GRAN ABSOLUTE AUTO 0.02 K/mm3 (0.00-0.10); IMMATURE GRAN PERCENT AUTO 0 % (0-1); LYMPHOCYTES ABSOLUTE AUTO 0.93 K/mm3 (0.84-5.20); LYMPHOCYTES PERCENT AUTO 16 % (21-46); MONOCYTES ABSOLUTE AUTO 0.35 K/mm3 (0.16-1.47); MONOCYTES PERCENT AUTO 6 % (4-13); Mean Corpuscular HGB 32.8 pg (26.0-34.0); Mean Corpuscular HGB Conc 34.7 g/dL (31.5-36.5); Mean Corpuscular Volume 95 fL (80-100); Mean Platelet Volume 10.6 fL (9.1-12.4); NEUTROPHILS PERCENT AUTO 78 % (41-73); Platelet Count 129 K/mm3 (150-400); RDW Coefficient Variation 11.9 % (11.7-14.2); RDW Standard Deviation 40.8 fL (35.1-46.3); Red Blood Cell Count 2.59 M/mm3 (3.80-5.20)
--- NOTE | 2024-09-17 15:00 | NUR ---
Pt was snoring soundly. Pt is recovering from recent hip surgery. Conducted life review of pt with pt's friend and elder from pt's jennifer affiliation. Aforementioned visitors had low to moderate energy but expressed relief in the form of laughter during conversation. Provided active listening to visitors. Visitors reported that pt feels affirmed by friends, family, and jennifer connections. Prayer was offered, visitors kindly declined and thanked me for the visit.
[2024-09-17 15:32] VITALS: BP 128/58
--- NOTE | 2024-09-17 16:33 | NUR ---
SHIFT SUMMARY PT AO TO SELF AND FAMILY, SLEPT MOST OF THE SHIFT. MEDICATED FOR PAIN PER THE EMAR. UP TO THE CHAIR FOR EARLY AFTERNOON BY LIFT. PT TAKES MEDICATIONS WELL WITH PUDDING. FAMILY UPDATED AT THE BS. REPOSITIONED THROUGHOUT THE SHIFT. ARAYA IN PLACE AND DRAINING. CATH CARE DONE. POSSIBLE DC TO [facility] TOMORROW. CALL LIGHT WITHIN REACH, BED LOCKED AND IN THE LOWEST POSITION. WILL REPORT TO ONCOMING NURSE.
[2024-09-17 20:35] VITALS: BP 133/65
[2024-09-18 03:30] VITALS: BP 149/79
--- NOTE | 2024-09-18 06:10 | NUR ---
SHIFT SUMARY: PT AOX 2-3 WITH SOME CONFUSION. HAS BEEN VERY TIRED, SPEAKING SLOWLY BUT ABLE TO ANSWER MOST QUESTIONS APPROPRIATELY. ANXIOUS ABOUT BEING A BURDEN BUT RESPONDED WELL TO REASSURANCE AND EAGER TO GET BETTER. WEENED DOWN TO 1L AND SATTING ~93-95%. PT COMPLAINED OF FEELING LIKE HER "THROAT WAS CLOSING" THIS RN CHECKED HER AND SHE WAS BREATHING AND SATTING WELL. NO SWELLING NOTED. THIS RN REASSURED HER THAT WE ARE TAKING CARE OF HER AND SHE STATED THAT SHE FELT BETTER AND THAT THE THROAT CLOSING SUBSIDED. NO OTHER ACUTE EVENTS OVER NIGHT. PT IN BED RESTING, BED IN LOWEST POSITION, AND CALL LIGHT IN REACH. CONTINUING CARE.
[2024-09-18 07:21] VITALS: BP 134/57
[2024-09-18] MEDS ORDERED: Citalopram Hydrobromide 10 MG TAB PO SCH (09:00)
[2024-09-18 16:42] VITALS: BP 115/57
--- NOTE | 2024-09-18 16:59 | NUR ---
Pt was awake but groggy. Pt was conversational but delayed in responses. Pt's son juan david was conversational and showed signs of distress. Pt's son communicated uncertainty about pt's condition. Spiritual assessment conducted. Pt's son was raised in the [employer] jennifer but because of pt's strong adherence to the jennifer gradually became disconnected. Pt's son was conversational and attentive to pt's needs. Attending nurses were also attentive to pt's needs. Prayer was offered. Pt and pt's son accepted. Pt and pt's son thanked me for the prayer and visit. Pt's son appeared uplifted from his distress.
--- NOTE | 2024-09-18 17:17 | NUR ---
SHIFT SUMMARY PT AOX3, UNSURE OF DATE/TIME. MUCH MORE ALERT THIS SHIFT, SHE HAS CALLED USING THE CALL LIGHT TO MAKE HER NEEDS KNOWN. WORKED WITH PT AND OT THIS SHIFT, UP TO THE CHAIR THIS MORNING. TOLERATED FAIR. DRESSING TO L HIP CHANGED, ORDERS PER DR. TOPETE. MEDICATED FOR PAIN PER THE EMAR. FAMILY AT THE BS THIS SHIFT, CONFIRMED PT'S CODE STATUS CHANGE. ARAYA PATENT AND DRAINING. PT IS NOW ON RA AND SATING >90. PT STATES FEELING MUCH BETTER. TODAY. SHE REMAINS A LIFT. SHE HAS BEEN REPOSITIONED THROUGHOUT THE ENTIRE SHIFT. CALL LIGHT WITHIN REACH, BED LOCKED AND IN THE LOWEST POSITION. BA WHEN FAMILY NOT AT THE BS. WILL REPORT TO ONCOMING NURSE.
[2024-09-18 19:42] VITALS: BP 124/47
[2024-09-19 02:43] VITALS: BP 119/67
--- NOTE | 2024-09-19 04:21 | NUR ---
SHIFT SUMMARY. PATIENT IS A&O X3 WITH CONFUSION. PATIENT DOES NOT USE HER CALL LIGHT BUT WILL CALL OUT. SON AT BEDSIDE AT BEGINNING OF SHIFT. PATIENT ATTEMPTED TO HAVEA BM X2 WTIH NO SUCCESS. PATIENT IS EAGER TO GET TO GO-PATIENT UNSURE OF WHAT WAS GOING TO HAPPEN TO HER AND WHERE SHE WAS GOING TO GO-THIS RN REASSURED PATIENT THAT SHE IS OKAY AND PLAN IS TO GO TO A PRISON FACILITY FOR REHAB BEFORE RETURNING HOME-PATEINT REPORTS SHE FEELS BETTER NOW THAT SHE KNOWS. PATIENT IS EAGER TO GET OUT OF THE HOSPITAL PER CARE COORDIATOR PATIENT ACCEPTED AT [facility] AND IS AWAITING INSURANCE APPROVAL. PATIENT RECEIVED BED BATH THIS SHIFT AND LINENS CHANGED. BED IS LOCKED IN THE LOWEST POSITION WITH CALL LIGHT IN REACH. CARE IS ONGOING.
[2024-09-19 07:30] VITALS: BP 151/59
[2024-09-19] MEDS ORDERED: ENOX40I SC (11:30)
[2024-09-19] MEDS ORDERED: MIRALAX17 GM PO (11:30)
[2024-09-19] MEDS ORDERED: Norco 5-325 Ta1 EACH PO (11:30)
--- NOTE | 2024-09-19 14:16 | NUR ---
Pt was awake and alert and eating. Pt's converstaional capacity has improved and she is able to recall pertinent information. Pt's son thinks she will be discharged to a skilled care facility. Pt's son expresses optimism about pt's condition "she'll be able to get up." Addressed pt's son's present state of mind and provided compassionate listening. Offered prayer to pt and pt's son and they accepted and expressed gratitude for prayer and visit. Pt's son expressed emotional relief in the form of tears.
[2024-09-19 15:36] VITALS: BP 116/54
--- NOTE | 2024-09-19 17:52 | NUR ---
SHIFT SUMMERY: PT AOX3 WITH SOME CONFUSION. PT UP TO CHAIR FOR AFTERNOON. TOLERATED STANDING WELL WITH 2 PERSON ASSIST AND GAIT BELT AND FFW. PT ACCEPTED TO [facility] AWAITING TRANSPORT TOMORROW. PT REPOSTIONED THROUGHOUT SHIFT. DRESSING CHANGED TO LEFT HIP. MEDICATED FOR PAIN PER EMAR. ARAYA PATENT AND DRAINED. FAMILY AT BEDSIDE UPDATED ON PLAN. WILL REPORT TO ONCOMING NURSE.
[2024-09-19 19:15] VITALS: BP 130/54
[2024-09-20 02:25] VITALS: BP 147/52
--- NOTE | 2024-09-20 04:38 | NUR ---
SHIFT SUMMARY. PATIENT IS A&OX3-4 WITH CONFUSION AT TIMES. PATIENT IS PLEASANT AND HAS BEEN USING HER CALL LIGHT APPROPRIATELY. PATIENT IS ABLE TO MAKE HER NEEDS KNOWN. PATIENTS DRESSING TO LEFT HIP CHANGED THIS SHIFT WITH SCANT AMOUNT OF BLOOD NOTED. PATIENT TAKES HER PILLS WHOLE WITH WATER. PATIENT REPOSITIONED T/O NIGHT. PATIENT SLEPT WELL THIS SHIFT WITH RESPIRATIONS EQUAL AND UNLABORED. PATIENT C/O PAIN-MEDICATED PER EMAR WITH PATIENT REPORTS OF IMPROVEMENT TO PAIN. PATIENT ACCEPTED TO [facility] FOR REHAB-PAT[facility] C[facility] [place]. PLAN IS FOR DISCHARGE TODAY 09/20/24. BED IS LOCKED IN THE LOWEST POSITION WITH CALL LIGHT IN REACH. CARE IS ONGOING.
[2024-09-20 07:58] VITALS: BP 147/74
--- NOTE | 2024-09-20 11:34 | NUR ---
Pt was alert and conversational. Pt is interested in being discharged soon. Conducted life review. 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 Examined relationship to visiting friend at bedside. Both pt and pt's friend's spouses passed as a result of pancreatic cancer. Pt and pt's friend find unusual coincidences that have informed their connection and find ways to be positive in spite of difficult circumstances. Discussed pt's friend's jennifer background and affirmed her spiritual connection with compassionate listening. Pt's friend inquired about this lead cashier's local spiritual connection. Prayer offered. Pt and pt's friend accepted and thanked me for visit. Pt appeared more positive following visit.
--- NOTE | 2024-09-20 12:15 | NUR ---
NURSING REPORT CALLED TO KIERSTEN CAMARGO
--- NOTE | 2024-09-20 13:07 | NUR ---
PT DISCHARGED VIA WHEELCHAIR TRANSPORT AT 1304. DISCHARGE PACKET WITH HARD SCRIPTS GIVEN TO CLINICAL UNIT EDUCATOR. PT BELONGINGS SENT WITH PATIENT.
== END 2024-09-20 13:04 | DRG 480 ==
LOC: ER 11:40 → MEDS 11:41 → ERHOLD 11:41 → MEDS 21:37
PROVIDERS: Orthopaedic Surgery; ADMIT Internal Medicine
PROC: 0QS734Z Reposition Left Upper Femur with Internal Fixation Device, Percutaneous Approach (ICD-10-PCS; principal; 2024-09-14 12:30)
DX: S72.142A Displaced intertrochanteric fracture of left femur, initial encounter for closed fracture (principal); G92.8 Other toxic encephalopathy; Z78.1 Physical restraint status; F41.9 Anxiety disorder, unspecified; G89.29 Other chronic pain; Z66 Do not resuscitate; M54.2 Cervicalgia; K21.9 Gastro-esophageal reflux disease without esophagitis; E03.9 Hypothyroidism, unspecified; E78.5 Hyperlipidemia, unspecified; M10.9 Gout, unspecified; F32.9 Major depressive disorder, single episode, unspecified; R32 Unspecified urinary incontinence; I48.0 Paroxysmal atrial fibrillation; G25.81 Restless legs syndrome; Z96.611 Presence of right artificial shoulder joint; Z88.8 Allergy status to other drugs, medicaments and biological substances; Z91.040 Latex allergy status; Z88.5 Allergy status to narcotic agent; Z79.899 Other long term (current) drug therapy; Z95.5 Presence of coronary angioplasty implant and graft; Z90.710 Acquired absence of both cervix and uterus; Z90.49 Acquired absence of other specified parts of digestive tract; Z85.118 Personal history of other malignant neoplasm of bronchus and lung; Z92.3 Personal history of irradiation; W18.30XA Fall on same level, unspecified, initial encounter
CPT/HCPCS: 36415; 70450; 72125; 73502; 80048; 85025; 85027; 94760; 96374; 97110; 97112; 97162; 97166; 97530; 97535; 99285-25; A9270; C1713; C1769; J0171; J0690; J1100; J1171; J1650; J1885; J2371; J2405; J2704; J3010; J7030; J7120